=== PATIENT | male | born 1985 | race Caucasian/White ===

== ENCOUNTER 2017-10-07 16:25 | Emergency (ER) | payer SELFPAY | END 2017-10-07 17:32 | disposition home or self-care (01) | LOC: ERS 16:25 | DX: K03.81 Cracked tooth (principal); K02.9 Dental caries, unspecified; F43.10 Post-traumatic stress disorder, unspecified; F41.1 Generalized anxiety disorder; F20.9 Schizophrenia, unspecified; F17.210 Nicotine dependence, cigarettes, uncomplicated | CPT/HCPCS: 99406 ==

== ENCOUNTER 2017-10-31 11:23 | Emergency (ER) | payer SELFPAY ==
[2017-10-31] MEDS ORDERED: Ketorolac Tromethamine 30 MG/ML VIAL ONE ×2 (13:34→13:35)
== END 2017-10-31 13:50 | disposition home or self-care (01) ==
LOC: ERS 11:23
DX: K03.81 Cracked tooth (principal); F17.210 Nicotine dependence, cigarettes, uncomplicated
CPT/HCPCS: 96372; J1885

== ENCOUNTER 2017-11-15 04:56 | Emergency (ER) | payer SELFPAY ==
[2017-11-15] MEDS ORDERED: Ketorolac Tromethamine 60 MG/2 ML VIAL ONE (05:19)
[2017-11-15] MEDS ORDERED: Lidocaine 1% PF 5 ML VIAL ONE (05:19)
[2017-11-15] MEDS ORDERED: cefTRIAXone\\ROCEPHIN 250 MG VIAL ONE (05:19)
[2017-11-15] MEDS ORDERED: Azithromycin 250 MG TAB ONE (05:19)
[2017-11-15 06:47] LABS: Bilirubin Negative (Negative); Blood, Urine Negative (Negative); Clarity CLEAR (Clear); Glucose, Urine (Dipstick) Negative (Negative); Leukocyte Negative (Negative); Nitrite Negative (Negative); Protein, Urine (Dipstick) Negative (Neg-Trace); Specific Gravity, Urine 1.009 (1.002-1.036); Urobilinogen 0.2 mg/dL (0.2-1.0); pH, Urine 7.5 (5.0-9.0)
[2017-11-17 20:34] LABS: Chlamydia by PCR Not Detected (NotDetected); GC by PCR Not Detected (NotDetected)
== END 2017-11-15 06:32 | disposition left against medical advice (07) ==
LOC: ERS 04:56
DX: R10.30 Lower abdominal pain, unspecified (principal); R30.0 Dysuria; F17.210 Nicotine dependence, cigarettes, uncomplicated; F41.9 Anxiety disorder, unspecified; F43.10 Post-traumatic stress disorder, unspecified; F20.9 Schizophrenia, unspecified; Z79.899 Other long term (current) drug therapy
CPT/HCPCS: 81003; 87491; 87591; 96372; J0696; J1885; J2001

== ENCOUNTER 2017-12-19 11:57 | Emergency (ER) | payer SELFPAY ==
--- NOTE | 2017-12-19 12:34 | RAD ---
FOUR VIEWS OF THE RIGHT KNEE: DATE: 12/19/17. COMPARISON: 07/05/04. HISTORY: Chronic pain. FINDINGS: There is a new sclerotic lesion within the distal right femoral shaft measuring 2.5 cm in craniocauda l dimension, likely representing a chondroid lesion. There is a stable screw associated with the pro ximal right tibia. No significant knee joint effusion. There is patellofemoral joint space narrowin g and posterior patellar osteophyte formation. There is mild medial and lateral compartment narrowin g. No acute fracture or dislocation seen. IMPRESSION: 1. Postoperative and degenerative changes within the right knee with no displaced fracture or eviden ce of dislocation. 2. Incidental note made of new sclerotic lesion within distal right femoral metaphysis, with an appe arance most consistent with chondroid lesion. If this is felt to represent the origin of patient luan n, MRI advised. Recommend nonemergent orthopedic consultation for followup assessment of distal righ t femoral sclerotic lesion. CODE T POS: [facility]
== END 2017-12-19 13:13 | disposition home or self-care (01) ==
LOC: ERS 11:57
DX: M25.561 Pain in right knee (principal); M89.9 Disorder of bone, unspecified; F41.9 Anxiety disorder, unspecified; F20.9 Schizophrenia, unspecified; F43.10 Post-traumatic stress disorder, unspecified; F17.210 Nicotine dependence, cigarettes, uncomplicated
CPT/HCPCS: 99406

== ENCOUNTER 2018-01-02 10:30 | Emergency (ER) | payer SELFPAY, OTHER ==
--- NOTE | 2018-01-29 14:39 | EKG ---
Test Reason : Blood Pressure : / mmHG Vent. Rate : 074 BPM Atrial Rate : 074 BPM P-R Int : 146 ms QRS Dur : 098 ms QT Int : 408 ms P-R-T Axes : 050 038 008 degrees QTc Int : 452 ms Normal sinus rhythm Normal ECG Confirmed by MAMADOU NOGUEIRA ([id number]), online editor AYAKA MUNROE ([id number]) on 01/29/2018 2:38:48 PM Referred By: SYLVESTER Confirmed By:MAMADOU NOGUEIRA
== END 2018-01-02 11:52 | disposition home or self-care (01) ==
LOC: ERS 10:30
DX: R07.2 Precordial pain (principal); F41.9 Anxiety disorder, unspecified; F20.9 Schizophrenia, unspecified; F43.10 Post-traumatic stress disorder, unspecified; F31.9 Bipolar disorder, unspecified; F17.210 Nicotine dependence, cigarettes, uncomplicated; Z71.6 Tobacco abuse counseling
CPT/HCPCS: 36416; 93005; 99406

== ENCOUNTER 2018-03-03 10:47 | Emergency (ER) | payer SELFPAY, OTHER ==
--- NOTE | 2018-03-03 13:39 | RAD ---
FOUR VIEWS RIGHT KNEE: HISTORY: Injury. Pain. COMPARISON: 12/19/17. FINDINGS: Stable postoperative change and sclerosis. No joint effusion. No fracture. No malalignment. Stabl e degenerative changes. IMPRESSION: 1. No fracture. 2. Stable sclerosis involving the distal femur. Stable postoperative changes. POS: [facility]
--- NOTE | 2018-03-03 13:40 | RAD ---
THREE VIEWS OF THE RIGHT ANKLE: DATE: 03/03/18. COMPARISON: None. HISTORY: Twisted ankle, pain. FINDINGS: There is enthesophyte formation at the insertion of the Achilles tendon. The talar dome and ankle mortise are intact. There is no displaced fracture or dislocation seen. IMPRESSION: No acute osseous abnormality. POS: [facility]
== END 2018-03-03 13:59 | disposition home or self-care (01) ==
LOC: ERS 10:47
DX: M25.561 Pain in right knee (principal); M25.571 Pain in right ankle and joints of right foot; G89.29 Other chronic pain; F41.9 Anxiety disorder, unspecified; F20.9 Schizophrenia, unspecified; F43.10 Post-traumatic stress disorder, unspecified; F31.9 Bipolar disorder, unspecified; F17.210 Nicotine dependence, cigarettes, uncomplicated; Z79.899 Other long term (current) drug therapy; W01.0XXA Fall on same level from slipping, tripping and stumbling without subsequent striking against object, initial encounter
CPT/HCPCS: 99283

== ENCOUNTER 2018-03-13 18:37 | Emergency (ER) | payer OTHER, SELFPAY ==
--- NOTE | 2018-03-13 19:37 | RAD ---
TWO VIEWS CHEST: 03/13/18 HISTORY: Evaluate for foreign body. Swallowed battery 10 to 15 minutes ago. COMPARISON: None. FINDINGS: Two views chest. Normal cardiac silhouette. The lungs and pleural spaces are clear. No pneumothorax. No osseous abnormalities. No radiopaque foreign body. IMPRESSION: No radiopaque foreign body. POS: [facility]
--- NOTE | 2018-03-13 19:41 | RAD ---
ONE VIEW ABDOMEN: 03/13/18 HISTORY: Patient swallowed a battery. Evaluate for foreign body. COMPARISON: None. FINDINGS: One view abdomen: In the epigastric region, there is a radiopaque foreign body measuring 6 cm. This foreign body has a cylindrical appearance and is compatible with ingested battery. This battery is likely in the distal stomach. Bowel gas pattern is nonspecific. No pneumoperitoneum on supine projection. IMPRESSION: Ingested foreign body as above. POS: [facility]
== END 2018-03-13 20:08 | disposition home or self-care (01) ==
LOC: ERS 18:37
DX: T18.9XXA Foreign body of alimentary tract, part unspecified, initial encounter (principal); F41.9 Anxiety disorder, unspecified; F20.9 Schizophrenia, unspecified; F43.10 Post-traumatic stress disorder, unspecified; F17.210 Nicotine dependence, cigarettes, uncomplicated; Z79.899 Other long term (current) drug therapy
CPT/HCPCS: 71046; 74018

== ENCOUNTER 2018-04-06 19:06 | Inpatient (IN) | payer SELFPAY ==
[2018-04-06] MEDS ORDERED: Lorazepam 2 MG/ML VIAL ONE (21:48)
[2018-04-06] MEDS ORDERED: Ziprasidone 20 MG VIAL ONE (22:04)
[2018-04-06 22:08] LABS: ALT (SGPT) 61 U/L (8-55); AST (SGOT) 183 U/L (5-34); Alkaline Phosphatase 87 U/L (40-150); Anion Gap 19 mmol/L (10-20); BUN (Urea Nitrogen) 21 mg/dL (8.9-20.6); Bilirubin, Total 2.2 mg/dL (0.2-1.2); Calc. Creatinine Clearance 0 mL/min (70-130); Calcium 10.1 mg/dL (7.8-10.44); Carbon Dioxide 20 mmol/L (22-29); Chloride 103 mmol/L (98-107); Estimated GFR-MDRD 24; Glucose 96 mg/dL (70-105); Potassium 3.7 mmol/L (3.5-5.1); Sodium 138 mmol/L (136-145)
[2018-04-06 22:14] LABS: Band 5 % (5-11); Hemoglobin 16.1 g/dL (14.0-18.0); Lymphocytes 13 % (21-51); MDiff Complete? YES; Mean Corpuscular HGB CONC 37.6 g/dL (32.0-36.0); Mean Corpuscular Hemoglobin 32.8 pg (27.0-31.0); Mean Corpuscular Volume 87.2 fL (78.0-98.0); Mean Platelet Volume 6.4 fL (7.4-10.4); Monocytes 12 % (0-10); Myelocyte 1 % (0-0); Neutrophil 69 % (42-75); PLT Morphology Comment Appears Adequate; Platelet Count 282 thou/uL (130-400); RBC Distribution Width 11.8 % (11.5-14.5); Red Blood Cell (RBC) Count 4.91 mill/uL (4.70-6.10)
[2018-04-06 22:55] LABS: Bilirubin Small (Negative); Blood, Urine Small (Negative); Clarity CLEAR (Clear); Glucose, Urine (Dipstick) Negative (Negative); Leukocyte Trace (Negative); Nitrite Negative (Negative); Protein, Urine (Dipstick) 100 mg/dL (Neg-Trace)
[2018-04-06 22:57] LABS: Bacteria/HPF None Seen HPF (None Seen); Squamous Epithelial 0-3 HPF (0-3)
[2018-04-06 23:02] LABS: Pathc Cast-AUWi Flag 7.12 (0-2.49)
[2018-04-06 23:05] LABS: Amphetamine Detected (NotDetected); Barbiturates Screen Not Detected (NotDetected); Benzodiazepine Screen Detected (NotDetected); Cocaine Metabolite Screen Not Detected (NotDetected); Medtox Control Line Valid? VALID (VALID); Medtox Reader # READER 1; Methadone Not Detected (NotDetected); Methamphetamine Detected (NotDetected); Opiate Screen Not Detected (NotDetected); Oxycodone Screen Not Detected (NotDetected); Phencyclidine (PCP) Not Detected (NotDetected); THC/Cannabinoid Screen Not Detected (NotDetected); Tricyclic Screen Not Detected (NotDetected)
[2018-04-06 23:10] LABS: Crystals/HPF 1+ CA OXALATE HPF (Negative)
--- NOTE | 2018-04-06 23:46 | RAD ---
ONE VIEW CHEST: HISTORY: Anxiety. COMPARISON: 03/13/2018 FINDINGS: Normal cardiac silhouette. Lungs and pleural spaces are clear. Lung volumes are slightly diminished due to poor inspiratory effort. No pneumothorax or osseous abnormalities. IMPRESSION: No acute cardiopulmonary process. POS: [facility]
[2018-04-07] MEDS ORDERED: Acetaminophen 325 MG TAB PO PRN ×2 (00:56→04:00)
[2018-04-07] MEDS ORDERED: Ondansetron HCl/PF 4 MG/2 ML Vial IVP PRN (00:56)
[2018-04-07] MEDS ORDERED: Sodium Chloride 0.9% 1,000 ML IV SCH ×2 (00:56→08:30)
[2018-04-07] MEDS ORDERED: Ondansetron ODT 4 MG TAB SL PRN (00:56)
[2018-04-07 02:08] VITALS: BMI 31.0
[2018-04-07] MEDS ORDERED: HYDROcodone/Acetaminophen 5/325 mg Tablet PO PRN ×2 (04:00)
[2018-04-07] MEDS ORDERED: Sodium Bicarbonate 150 MEQ in Dextrose 5% in Water 1,000 ML IV SCH (04:30)
[2018-04-07 04:40] LABS: #Eosinphils 0.1 thou/uL (0.0-0.7); #Monocytes 1.6 thou/uL (0.11-0.59); #Neutrophils 7.2 thou/uL (1.40-6.50); %Basophils 0.4 % (0.0-1.0); %Eosinophils 0.4 % (0.0-10.0); %Lymphocytes 25.5 % (21.0-51.0); %Monocytes 13.3 % (0.0-10.0); %Neutrophils 60.4 % (42.0-75.0); Mean Corpuscular HGB CONC 35.8 g/dL (32.0-36.0); Mean Corpuscular Hemoglobin 31.6 pg (27.0-31.0); Mean Corpuscular Volume 88.4 fL (78.0-98.0); Mean Platelet Volume 6.2 fL (7.4-10.4); Platelet Count 195 thou/uL (130-400); RBC Distribution Width 11.8 % (11.5-14.5); Red Blood Cell (RBC) Count 4.43 mill/uL (4.70-6.10); White Blood Cell (WBC) Count 11.9 thou/uL (4.8-10.8)
[2018-04-07 04:56] LABS: Anion Gap 15 mmol/L (10-20); BUN (Urea Nitrogen) 20 mg/dL (8.9-20.6); Calc. Creatinine Clearance 78 mL/min (70-130); Calcium 8.9 mg/dL (7.8-10.44); Carbon Dioxide 19 mmol/L (22-29); Chloride 107 mmol/L (98-107); Estimated GFR-MDRD 39; Glucose 77 mg/dL (70-105); Magnesium 1.6 mg/dL (1.6-2.6); Potassium 3.6 mmol/L (3.5-5.1); Sodium 137 mmol/L (136-145)
[2018-04-07 05:25] LABS: CK (CPK) 20494 U/L (30-200)
--- NOTE | 2018-04-07 07:44 | HP ---
DATE OF ADMISSION: 04/07/2018 PRIMARY CARE PHYSICIAN: None. The patient is a city call. TIME OF SERVICE: 314. CHIEF COMPLAINT: Anxiety. HISTORY OF PRESENT ILLNESS: Mr. Doe is a 32-year-old male with a history of known anxiety disorder . He also has schizophrenia and bipolar disorder. The patient states he has felt "manic" lately and has had some headache and neck pain. He has been taking his medicines as prescribed, but has not re ally helped. He has recently been admitted to [facility] about a month ag o. In the emergency department, he was noted to be anxious. Urine drug screen was positive for amphetam ine/methamphetamines and benzodiazepines. He was complaining of some vague chest discomfort, but had negative cardiac biomarkers. The labs also did reveal his CK to be 23,778. We were subsequently ca lled for admission. The patient denies any chest pain or shortness of breath, no nausea, vomiting, diarrhea, constipation . PAST MEDICAL HISTORY: 1. Anxiety. 2. Post-traumatic stress disorder. 3. Panic attacks. 4. Schizophrenia. 5. Bipolar disorder. PAST SURGICAL HISTORY: 1. Hernia repair x2. 2. Right knee surgery x3. 3. Left knee surgery x1. 4. Pyloric stenosis myotomy as a child. HOME MEDICATIONS: 1. Buspirone 30 mg p.o. t.i.d. 2. Zoloft 200 mg daily. 3. Benztropine 1 mg p.o. b.i.d. ALLERGIES: PENICILLIN causes a rash, TRAMADOL causes him to be listless. FAMILY HISTORY: Negative for clotting or bleeding disorder. No immune dysfunction or premature pepper nary disease. SOCIAL HISTORY: Negative for habits x3. REVIEW OF SYSTEMS: All systems are reviewed and negative except listed as per HPI. PHYSICAL EXAMINATION: VITAL SIGNS: Temperature 98.6, pulse 88, blood pressure 132/73, respiratory rate 12, satting 100% on room air. GENERAL: He is awake, is alert, is oriented x3. He is an obese white male, appears to be in no acut e distress. HEENT: Normocephalic, atraumatic. Pupils equal, round, react to light bilaterally. Mucous membrane s moist. No visible lesion, no thrush. NECK: Supple. No lymphadenopathy, JVD, or thyromegaly. Normal carotid upstrokes. I do not appreci ate bruits. LUNGS: Clear. He has no wheezes, no rales, no rhonchi. No prolonged expiratory phase. CARDIOVASCULAR: Normal S1 and S2. He has normal cardiac and regular. No audible murmurs. ABDOMEN: Soft, is nontender, nondistended, no mass or organomegaly. Normoactive bowel sounds that a re quiet. EXTREMITIES: No cyanosis or clubbing. Trace pedal edema. SKIN: Otherwise, warm, moist, and well perfused without a rash or lesion. MUSCULOSKELETAL: Normal to inspection. Large joints appear normal. There is no evidence of inflammation or palpable effusio n with decent range of motion. NEUROLOGIC: Cranial nerves II-XII are grossly intact. He has no focal deficits. He does have fligh t of ideas. He has no focal deficits. Normal speech pattern with 5/5 strength. LABORATORY DATA: Sodium 138, potassium 3.7, chloride 103, bicarb 20, BUN 21, creatinine 3.03. Liver function showed an AST elevated at 183 and ALT of 61. Total bilirubin is 2.2. The rest of his liver functions are normal. His CBC showed a white count of 19,000, hemoglobin is 16.1, hematocrit of 42.8, platelet count is 282,000. He has got a 69% granulocytes with 5% bands and 32% lymphocytes. His chest x-ray is negative. ASSESSMENT AND PLAN: 1. Rhabdomyolysis, patient's CK is 23,378. We will continue him on IV fluids. Recheck his creatini ne and CK in the morning. 2. Methamphetamine abuse: The patient is positive for methamphetamines which he does admit to using . It should clear his system fairly quickly as his creatinine improves. 3. Anxiety disorder. 4. Post-traumatic stress disorder. 5. Panic attack. 6. Schizophrenia. 7. Bipolar disorder with what sounds like a manic phase. I will continue his buspirone, Zoloft, and benztropine. Continue to aggressively hydrate and watch his vital signs. 8. Acute kidney injury. Creatinine is 3.03 with an unknown baseline. Recheck in the morning. I barrios spect he is much more normal on a regular basis.
[2018-04-07] MEDS ORDERED: busPIRone HCl 10 MG TAB PO SCH (09:00)
[2018-04-07] MEDS ORDERED: Benztropine 1 MG TAB PO SCH (09:00)
[2018-04-07] MEDS ORDERED: Famotidine 20 MG TAB PO SCH (09:00)
[2018-04-07] MEDS ORDERED: Lorazepam 1 MG TAB PO PRN ×2 (10:36→14:22)
[2018-04-07 11:29] VITALS: BP 117/83; TEMP 98.4
[2018-04-07] MEDS ORDERED: Lorazepam 2 MG/ML VIAL SLOW IVP PRN (14:19)
--- NOTE | 2018-04-07 14:26 | PDOC.PN ---
- Subjective Encounter Start Date: 04/07/18 Encounter Start Time: 14:00 Subjective: f/u for seizure, MOHIT, rhabdomyolysis on current IVF's. Remains agitated -: and received Geodon and Ativan. + meth on UDS. - Objective Resuscitation Status: Resuscitation Status FULL:Full Resuscitation MAR Reviewed: Yes Vital Signs & Weight: Vital Signs (12 hours) Temp Pulse Resp BP BP Pulse Ox 04/07/18 11:10 98.4 F 103 H 24 H 117/83 96 04/07/18 07:45 97.9 F 93 24 H 04/07/18 07:18 97.9 F 93 24 H 125/79 96 04/07/18 03:18 98.7 F 89 14 129/79 99 Weight Weight 229 lb I&O: 04/06/18 04/07/18 04/08/18 06:59 06:59 06:59 Intake Total 342 Balance 342 Result Diagrams: 04/07/18 04:21 04/07/18 04:21 Additional Labs: Laboratory Tests 04/06/18 04/06/18 04/06/18 21:39 21:39 21:39 WBC 19.0 H Creatinine 3.03 H Total Bilirubin 2.2 H AST 183 H ALT 61 H Creatine Kinase TSH 3rd Generation 3.6656 Ur Amphetamines Screen U Methamphetamines Scrn U Benzodiazepines Scrn 04/06/18 04/06/18 04/07/18 21:39 22:47 04:21 WBC Creatinine Total Bilirubin AST ALT Creatine Kinase 32528 H 46190 H TSH 3rd Generation Ur Amphetamines Screen Detected H U Methamphetamines Scrn Detected H U Benzodiazepines Scrn Detected H Radiology Reviewed by me: Yes (PCXR - no acute process) EKG Reviewed by me: Yes (Tele - SR) Phys Exam - Physical Examination anxious, alert, agitated HEENT: PERRLA, sclera anicteric, oral pharynx no lesions Neck: no nodes, no JVD, supple, full ROM tachypnea Respiratory: no wheezing, no rales, no rhonchi, clear to auscultation bilateral S1, S2 Cardiovascular: RRR, no significant murmur, no rub, gallop Gastrointestinal: soft, non-tender, no distention, positive bowel sounds Musculoskeletal: no edema, pulses present moves extremities randomly Neurological: non-focal, normal sensation, moves all 4 limbs Psychiatric: A&O x 3 Skin: no rash, normal turgor, cap refill <2 seconds Dx/Plan (1) Seizure Code(s): R56.9 - UNSPECIFIED CONVULSIONS Status: Acute Comment: Suspected given hx and elevated CK levels, Ativan scheduled, suspect given polysubstance use and ? withdrawal type seizure (2) Acute renal failure due to rhabdomyolysis Code(s): N17.9 - ACUTE KIDNEY FAILURE, UNSPECIFIED; M62.82 - RHABDOMYOLYSIS Status: Acute Comment: Continue IVF's and avoid nephrotoxic meds and limit contrast exposure, serial CPK monitoring (3) Polysubstance abuse Code(s): F19.10 - OTHER PSYCHOACTIVE SUBSTANCE ABUSE, UNCOMPLICATED Status: Acute Comment: + methamphetamines, MR consult (4) Transaminitis Code(s): R74.0 - NONSPEC ELEV OF LEVELS OF TRANSAMNS & LACTIC ACID DEHYDRGNSE Status: Acute (5) Bipolar 1 disorder Code(s): F31.9 - BIPOLAR DISORDER, UNSPECIFIED Status: Chronic Comment: Resume home regimen, MHMR consult - 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
[2018-04-07] MEDS ORDERED: Ziprasidone 60 MG CAP PO SCH (17:00)
--- NOTE | 2018-04-08 05:31 | DIS ---
DATE OF ADMISSION: 04/07/2018 DATE OF DISCHARGE: 04/07/2018 DISCHARGE DIAGNOSES: 1. Seizure disorder, multifactorial. 2. Acute renal failure secondary to rhabdomyolysis. 3. Polysubstance abuse including methamphetamines. 4. Bipolar disorder with psychotic features. 5. Transaminitis. 6. Leaving the hospital against medical advice. CONSULTATIONS: None. PERTINENT LABORATORY DATA AND X-RAY FINDINGS: Creatinine ranged between 2.02 to 3.03, AST 183, ALT 6 1, total bilirubin 2.2, magnesium 1.6, total CK ranged between 20,494 to 23,373. TSH 3.67. CBC show ed a white blood cell count ranging between 11,900 to 19,000. Urine drug screen dated on 04/06/2018, positive for amphetamines, methamphetamines, and benzodiazepines. Portable chest x-ray dated on 10/2017 showed no acute cardiopulmonary process. HOSPITAL COURSE: Patient was initially admitted after presenting with increased anxiety and psychoti c features in the context of known bipolar disorder and psychosis. Patient was initially managed wit h normal saline, Ativan, and Geodon in the emergency room. Patient continued to escalate mood, anxie ty as well as psychotic tendencies during the hospital course. Patient received additional Ativan wi thout improvement and psychosis. Patient became unmanageable and decided to leave the hospital again st medical advice, so security was notified; however, patient left without being apprehended. Patien t continues with psychotic features and current recommendations per primary service or for family to assist patient to [facility] services and supervised medical care through inpatient psychiatric environment . The patient did leave against medical advice on 04/07/2018.
[2018-04-08] MEDS ORDERED: Venlafaxine HCl XR 75 MG CAP PO SCH (09:00)
== END 2018-04-07 16:45 | disposition left against medical advice (07) | DRG 683 ==
LOC: ERS 19:06 → 2SW 04-07 00:39 → OBSVTOIN 04-07 00:39 → 2NO 04-07 11:28
PROVIDERS: ADMIT Internal Medicine Infectious Disease; ATTEND Internal Medicine Infectious Disease
DX: N17.9 Acute kidney failure, unspecified (principal); F31.2 Bipolar disorder, current episode manic severe with psychotic features; M62.82 Rhabdomyolysis; R56.9 Unspecified convulsions; F20.9 Schizophrenia, unspecified; F43.10 Post-traumatic stress disorder, unspecified; F41.0 Panic disorder [episodic paroxysmal anxiety]; F15.10 Other stimulant abuse, uncomplicated; Z88.0 Allergy status to penicillin; Z88.8 Allergy status to other drugs, medicaments and biological substances; Z79.899 Other long term (current) drug therapy
CPT/HCPCS: 36415; 71045; 80048; 80053; 80306; 81003; 81015; 82550; 83735; 84443; 85025; 93005; J2060; J3486; J7070

== ENCOUNTER 2018-05-06 17:00 | Emergency (ER) | payer SELFPAY ==
--- NOTE | 2018-05-06 17:40 | RAD ---
LEFT KNEE 4 VIEWS: Date: 05/06/18 HISTORY: 32-year-old male with history of left knee pain following dislocation when walking. FINDINGS: No evidence for acute fracture or dislocation. No abnormal joint effusion. IMPRESSION: Unremarkable left knee. No acute fracture or dislocation. POS: [facility]
== END 2018-05-06 18:03 | disposition home or self-care (01) ==
LOC: ERS 17:00
DX: S83.002A Unspecified subluxation of left patella, initial encounter (principal); F41.9 Anxiety disorder, unspecified; F20.9 Schizophrenia, unspecified; F43.10 Post-traumatic stress disorder, unspecified; F17.210 Nicotine dependence, cigarettes, uncomplicated; X50.1XXA Overexertion from prolonged static or awkward postures, initial encounter

== ENCOUNTER 2018-05-20 22:40 | Emergency (ER) | payer SELFPAY ==
[2018-05-20 23:45] LABS: #Basophils 0.1 thou/uL (0.0-0.2); #Eosinphils 0.1 thou/uL (0.0-0.7); #Lymphocytes 2.6 thou/uL (1.20-3.40); #Monocytes 0.7 thou/uL (0.11-0.59); #Neutrophils 3.6 thou/uL (1.40-6.50); %Basophils 1.3 % (0.0-1.0); %Monocytes 9.7 % (0.0-10.0); %Neutrophils 50.1 % (42.0-75.0); Hemoglobin 14.5 g/dL (14.0-18.0); Mean Corpuscular HGB CONC 35.1 g/dL (32.0-36.0); Mean Corpuscular Volume 91.2 fL (78.0-98.0); Mean Platelet Volume 6.5 fL (7.4-10.4); Platelet Count 209 thou/uL (130-400); RBC Distribution Width 11.9 % (11.5-14.5); Red Blood Cell (RBC) Count 4.53 mill/uL (4.70-6.10); White Blood Cell (WBC) Count 7.1 thou/uL (4.8-10.8)
[2018-05-21 00:05] LABS: ALT (SGPT) 28 U/L (8-55); AST (SGOT) 19 U/L (5-34); Acetaminophen Less than 6.0 mcg/mL (10.0-30.0); Albumin 4.4 g/dL (3.5-5.0); Alcohol Less than 10 mg/dL (Less than 10); Alkaline Phosphatase 103 U/L (40-150); Anion Gap 13 mmol/L (10-20); BUN (Urea Nitrogen) 9 mg/dL (8.9-20.6); Bilirubin, Total 0.4 mg/dL (0.2-1.2); Calc. Creatinine Clearance 0 mL/min (70-130); Calcium 9.6 mg/dL (7.8-10.44); Carbon Dioxide 24 mmol/L (22-29); Chloride 106 mmol/L (98-107); Estimated GFR-MDRD 64; Globulin 2.8 g/dL (2.4-3.5); Glucose 92 mg/dL (70-105); Potassium 3.9 mmol/L (3.5-5.1); Protein, Total 7.2 g/dL (6.0-8.3); Salicylate Less than 8.0 mg/dL (15.0-30.0); Sodium 139 mmol/L (136-145)
[2018-05-21 01:35] LABS: Cocaine Metabolite Screen Not Detected (NotDetected); Medtox Reader # READER 1; Phencyclidine (PCP) Not Detected (NotDetected); THC/Cannabinoid Screen Not Detected (NotDetected)
[2018-05-21 01:36] LABS: Amphetamine Not Detected (NotDetected); Barbiturates Screen Not Detected (NotDetected); Benzodiazepine Screen Detected (NotDetected); Medtox Control Line Valid? VALID (VALID); Methadone Not Detected (NotDetected); Methamphetamine Not Detected (NotDetected); Opiate Screen Not Detected (NotDetected); Oxycodone Screen Not Detected (NotDetected); Tricyclic Screen Not Detected (NotDetected)
[2018-05-21] MEDS ORDERED: Benztropine 1 MG TAB PO SCH (09:00)
[2018-05-21] MEDS ORDERED: Gabapentin 300 MG CAP PO SCH (09:00)
[2018-05-21] MEDS ORDERED: OXcarbazepine 150 MG TAB PO SCH (09:00)
[2018-05-21] MEDS ORDERED: busPIRone HCl 10 MG TAB PO SCH (09:00)
[2018-05-21] MEDS ORDERED: Prazosin HCl 1 MG CAP PO SCH (21:00)
== END 2018-05-21 12:35 | disposition home or self-care (01) ==
LOC: ERS 22:40 → EEVIPCON 22:40 → ERS 05-21 12:35
DX: F29 Unspecified psychosis not due to a substance or known physiological condition (principal); F41.9 Anxiety disorder, unspecified; F20.9 Schizophrenia, unspecified; F43.10 Post-traumatic stress disorder, unspecified; Z79.899 Other long term (current) drug therapy
CPT/HCPCS: 36415; 80053; 80306; 80307; 85025; 99284

== ENCOUNTER 2018-06-08 18:25 | Emergency (ER) | payer SELFPAY ==
[2018-06-08 19:39] LABS: #Eosinphils 0.1 thou/uL (0.0-0.7); #Lymphocytes 2.3 thou/uL (1.20-3.40); #Monocytes 0.5 thou/uL (0.11-0.59); %Basophils 0.6 % (0.0-1.0); %Eosinophils 1.3 % (0.0-10.0); %Lymphocytes 33.1 % (21.0-51.0); %Monocytes 7.7 % (0.0-10.0); %Neutrophils 57.3 % (42.0-75.0); Hemoglobin 14.6 g/dL (14.0-18.0); Mean Corpuscular HGB CONC 36.1 g/dL (32.0-36.0); Mean Corpuscular Hemoglobin 32.5 pg (27.0-31.0); Mean Corpuscular Volume 89.8 fL (78.0-98.0); Mean Platelet Volume 6.9 fL (7.4-10.4); Platelet Count 202 thou/uL (130-400); RBC Distribution Width 11.8 % (11.5-14.5); White Blood Cell (WBC) Count 7.1 thou/uL (4.8-10.8)
[2018-06-08 19:53] LABS: ALT (SGPT) 25 U/L (8-55); AST (SGOT) 22 U/L (5-34); Acetaminophen Less than 6.0 mcg/mL (10.0-30.0); Albumin 4.5 g/dL (3.5-5.0); Alcohol Less than 10 mg/dL (Less than 10); Alkaline Phosphatase 99 U/L (40-150); Anion Gap 12 mmol/L (10-20); BUN (Urea Nitrogen) 11 mg/dL (8.9-20.6); Bilirubin, Total 0.3 mg/dL (0.2-1.2); Calc. Creatinine Clearance 0 mL/min (70-130); Calcium 9.6 mg/dL (7.8-10.44); Carbon Dioxide 22 mmol/L (22-29); Chloride 109 mmol/L (98-107); Estimated GFR-MDRD 76; Globulin 3.2 g/dL (2.4-3.5); Glucose 119 mg/dL (70-105); Potassium 4.2 mmol/L (3.5-5.1); Protein, Total 7.7 g/dL (6.0-8.3); Salicylate Less than 8.0 mg/dL (15.0-30.0); Sodium 139 mmol/L (136-145)
== END 2018-06-08 20:15 | disposition home or self-care (01) ==
LOC: ERS 18:25
DX: F43.10 Post-traumatic stress disorder, unspecified (principal); F25.9 Schizoaffective disorder, unspecified; F41.9 Anxiety disorder, unspecified; F17.200 Nicotine dependence, unspecified, uncomplicated; Z79.899 Other long term (current) drug therapy
CPT/HCPCS: 36415; 80053; 80307; 84443; 85025

== ENCOUNTER 2018-06-11 10:44 | Emergency (ER) | payer SELFPAY | END 2018-06-11 14:05 | disposition left against medical advice (07) | LOC: ERS 10:44 | DX: Z53.21 Procedure and treatment not carried out due to patient leaving prior to being seen by health care provider (principal) ==

== ENCOUNTER 2018-06-12 19:09 | Inpatient (IN) | payer SELFPAY ==
[2018-06-12 19:30] LABS: #Basophils 0.1 thou/uL (0.0-0.2); #Eosinphils 0.1 thou/uL (0.0-0.7); #Monocytes 0.5 thou/uL (0.11-0.59); #Neutrophils 2.8 thou/uL (1.40-6.50); %Basophils 0.9 % (0.0-1.0); %Eosinophils 2.4 % (0.0-10.0); %Lymphocytes 36.2 % (21.0-51.0); %Monocytes 9.3 % (0.0-10.0); %Neutrophils 51.1 % (42.0-75.0); Hemoglobin 13.9 g/dL (14.0-18.0); Mean Corpuscular HGB CONC 35.6 g/dL (32.0-36.0); Mean Corpuscular Hemoglobin 32.5 pg (27.0-31.0); Mean Corpuscular Volume 91.3 fL (78.0-98.0); Mean Platelet Volume 6.8 fL (7.4-10.4); Platelet Count 205 thou/uL (130-400); Red Blood Cell (RBC) Count 4.28 mill/uL (4.70-6.10); White Blood Cell (WBC) Count 5.5 thou/uL (4.8-10.8)
[2018-06-12] MEDS ORDERED: Naloxone HCl 2 mg/2 ml Syringe ONE (19:46)
[2018-06-12 19:49] LABS: Bilirubin Negative (Negative); Blood, Urine Negative (Negative); Clarity CLEAR (Clear); Glucose, Urine (Dipstick) Negative (Negative); Leukocyte Negative (Negative); Nitrite Negative (Negative); Protein, Urine (Dipstick) Negative (Neg-Trace); Specific Gravity, Urine 1.013 (1.002-1.036); Urobilinogen 0.2 mg/dL (0.2-1.0); pH, Urine 5.5 (5.0-9.0)
[2018-06-12 19:56] LABS: ALT (SGPT) 28 U/L (8-55); AST (SGOT) 28 U/L (5-34); Acetaminophen Less than 6.0 mcg/mL (10.0-30.0); Albumin 4.2 g/dL (3.5-5.0); Alcohol Less than 10 mg/dL (Less than 10); Alkaline Phosphatase 77 U/L (40-150); Anion Gap 11 mmol/L (10-20); BUN (Urea Nitrogen) 10 mg/dL (8.9-20.6); Bilirubin, Total 0.6 mg/dL (0.2-1.2); CK (CPK) 326 U/L (30-200); Calc. Creatinine Clearance 0 mL/min (70-130); Calcium 9.2 mg/dL (7.8-10.44); Carbon Dioxide 28 mmol/L (22-29); Chloride 102 mmol/L (98-107); Estimated GFR-MDRD 71; Globulin 2.7 g/dL (2.4-3.5); Glucose 87 mg/dL (70-105); Potassium 3.8 mmol/L (3.5-5.1); Protein, Total 6.9 g/dL (6.0-8.3); Salicylate Less than 8.0 mg/dL (15.0-30.0); Sodium 137 mmol/L (136-145)
[2018-06-12 20:01] LABS: Benzodiazepine Screen Detected (NotDetected); Medtox Reader # READER 4; Methamphetamine Detected (NotDetected); Oxycodone Screen Detected (NotDetected); Tricyclic Screen Detected (NotDetected)
[2018-06-12 20:02] LABS: Amphetamine Not Detected (NotDetected); Barbiturates Screen Not Detected (NotDetected); Cocaine Metabolite Screen Not Detected (NotDetected); Medtox Control Line Valid? VALID (VALID); Methadone Not Detected (NotDetected); Opiate Screen Not Detected (NotDetected); Phencyclidine (PCP) Not Detected (NotDetected); THC/Cannabinoid Screen Not Detected (NotDetected)
[2018-06-12] MEDS ORDERED: Ondansetron HCl/PF 4 MG/2 ML Vial IVP PRN (23:22)
[2018-06-12] MEDS ORDERED: Sodium Chloride 0.9% 1,000 ML IV SCH (23:22)
[2018-06-12] MEDS ORDERED: Acetaminophen 325 MG TAB PO PRN (23:22)
[2018-06-12] MEDS ORDERED: Ondansetron ODT 4 MG TAB SL PRN (23:22)
[2018-06-13] MEDS ORDERED: Lorazepam 2 MG/ML VIAL SLOW IVP PRN (01:09)
[2018-06-13 02:02] VITALS: BMI 33.2
[2018-06-13] MEDS: Sodium Chloride 0.9% 1,000 ML IV SCH ×2 (02:02→07:37)
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
[2018-06-13 11:39] VITALS: BP 119/90; TEMP 98.2
--- NOTE | 2018-06-13 17:11 | DIS ---
DATE OF ADMISSION: 06/12/2018 DATE OF DISCHARGE: 06/13/2018 PRIMARY CARE PHYSICIAN: Jimmie Cruz M.D. PRIMARY PSYCHIATRIST: Dr. Hernandez DISCHARGE DIAGNOSES: 1. Accidental overdose. 2. Polysubstance abuse. 3. Post-traumatic stress disorder. 4. Toxic encephalopathy secondary to combined medications as below. 5. Generalized anxiety disorder. 6. Schizophrenia. 7. Bipolar. CONSULTATIONS: None. PROCEDURES: None. HISTORY AND PHYSICAL: Mr. Doe is a 32-year-old male with the above history who wanted to get "high " medications. He was started on hydrocodone, Xanax (which he says takes 26 mg to get him high ) and methamphetamine. He sat down and felt like he was sleepy and passed out. He was found to be u nresponsive and EMS was activated. He was brought to the ER for evaluation. HOSPITAL COURSE: Patient was seen and examined by Dr. Rice in the emergency department and placed in IMCU for monitoring. I saw him earlier this morning and he was extremely somnolent, however, leeanne rtly thereafter he promptly woke up and was back to baseline mental status. He seemed little agitate d, vehemently denied being suicidal or homicidal, and a Gu catheter was ordered to be removed and diet was given. He is able to void and was able to eat without difficulty and was stable for dischar . PHYSICAL EXAMINATION: The patient was seen and examined on the day of discharge. Discharge planning and disposition were discussed with the patient, his cousin, and his . DISCHARGE MEDICATIONS: 1. Cogentin 1 mg p.o. t.i.d. 2. Buspirone 30 mg p.o. t.i.d. 3. Gabapentin 300 mg p.o. b.i.d. 4. Trileptal 150 mg p.o. b.i.d. 5. Prazosin 1 mg p.o. at bedtime. 6. Sertraline 200 mg p.o. daily. 7. Venlafaxine 75 mg daily. 8. Geodon 80 mg p.o. b.i.d. FOLLOWUP APPOINTMENTS: 1. Primary care physician within a week. 2. Psychiatrist next available. DISCHARGE ACTIVITY: As tolerated. DISCHARGE DIET: Restricted. DISCHARGE CONDITION: Stable. DISPOSITION: Being discharged home via private vehicle with family.
--- NOTE | 2018-06-14 22:25 | EKG ---
Test Reason : OD Blood Pressure : / mmHG Vent. Rate : 072 BPM Atrial Rate : 072 BPM P-R Int : 152 ms QRS Dur : 098 ms QT Int : 432 ms P-R-T Axes : 029 001 -01 degrees QTc Int : 473 ms Normal sinus rhythm Moderate voltage criteria for LVH, may be normal variant Borderline ECG Confirmed by ANN SIERRA DO ([id number]), slot editor AYAKA MUNROE ([id number]) on 06/14/2018 10:25:12 PM Referred By: Confirmed By:ANN SIERRA DO
== END 2018-06-13 15:56 | disposition home or self-care (01) | DRG 917 ==
LOC: EEVIPCON 19:09 → ERS 19:09 → IMCU/EMU 22:42
PROVIDERS: ADMIT Internal Medicine; ATTEND Internal Medicine
DX: T50.991A Poisoning by other drugs, medicaments and biological substances, accidental (unintentional), initial encounter (principal); G92 Toxic encephalopathy; F15.20 Other stimulant dependence, uncomplicated; F41.1 Generalized anxiety disorder; F20.9 Schizophrenia, unspecified; F43.10 Post-traumatic stress disorder, unspecified; Z96.659 Presence of unspecified artificial knee joint; F31.9 Bipolar disorder, unspecified; F12.90 Cannabis use, unspecified, uncomplicated
CPT/HCPCS: 51702; 80053; 80306; 80307; 81003; 82550; 84443; 85025; 93005; 96361; 96374; J2310

== ENCOUNTER 2019-06-29 02:30 | Emergency (ER) | payer SELFPAY ==
[2019-06-29] MEDS ORDERED: Morphine 4 MG/ML VIAL ONE (03:51)
--- NOTE | 2019-06-29 08:22 | RAD ---
LEFT KNEE 4 VIEWS: HISTORY: Recurrent patellar dislocation. COMPARISON: 05/06/2018. FINDINGS: There does appear to be some lateral patellar subluxation as seen on the AP view. Evidence for knee joint suprapatellar effusion. No overt acute fracture. IMPRESSION: Evidence for some lateral patellar subluxation with suprapatellar joint effusion. No overt acute fra cture. Followup MRI would be of benefit for further assessment. POS: [facility]
== END 2019-06-29 04:26 | disposition home or self-care (01) ==
LOC: ERS 02:30
DX: S83.015A Lateral dislocation of left patella, initial encounter (principal); Z71.6 Tobacco abuse counseling; E78.5 Hyperlipidemia, unspecified; F20.9 Schizophrenia, unspecified; F43.10 Post-traumatic stress disorder, unspecified; F31.9 Bipolar disorder, unspecified; F17.210 Nicotine dependence, cigarettes, uncomplicated; Z79.899 Other long term (current) drug therapy; W10.9XXA Fall (on) (from) unspecified stairs and steps, initial encounter
CPT/HCPCS: 96372; 99406; J2270

== ENCOUNTER 2020-01-29 13:05 | Outpatient (CLI) | payer MEDICARE, MEDICAID, OTHER | END 2020-01-29 13:06 | disposition home or self-care (01) | LOC: LABBT 13:05 | PROVIDERS: ATTEND Student in an Organized Health Care Education/Training Program | DX: Z11.59 Encounter for screening for other viral diseases (principal); R22.0 Localized swelling, mass and lump, head; L72.0 Epidermal cyst | CPT/HCPCS: 80053; 80061; 83036; 84439; 84443; U0002; 87635 ==

== ENCOUNTER 2020-02-02 05:53 | Day surgery (SDC) | payer MEDICARE, MEDICAID ==
[2020-01-29 13:14] VITALS: BMI 35.0
[2020-02-02] MEDS ORDERED: Lidocaine 1% w/Epinephrine 1:100K 20 ML VIAL ONE (06:24)
[2020-02-02] MEDS ORDERED: Fentanyl 100 MCG/2 ML VIAL ONE (06:55)
[2020-02-02] MEDS ORDERED: Midazolam HCl 2 mg/2 ml Vial ONE (06:55)
[2020-02-02] MEDS ORDERED: Bacitracin Zinc Ointment 30 gm TUBE ONE (08:10)
[2020-02-02] MEDS ORDERED: PROPOFOL 200 MG/20 ML VIAL ONE (09:55)
[2020-02-02] MEDS ORDERED: Rocuronium Bromide 10 MG/ML (10ML VIAL) ONE (09:55)
[2020-02-02] MEDS ORDERED: Lidocaine 1% PF 5 ML VIAL ONE (09:55)
[2020-02-02] MEDS ORDERED: Succinylcholine Chloride 20 MG/ML 10 ml SYRINGE FS ONE (09:55)
--- NOTE | 2020-02-02 14:07 | OP ---
DATE OF PROCEDURE: 02/02/2020 PREOPERATIVE DIAGNOSIS: Right facial mass. POSTOPERATIVE DIAGNOSIS: Right facial mass. PROCEDURE PERFORMED: Excision of right facial mass 3.5 cm in diameter. PERMIT: Procedures, benefits, and risks including those of bleeding, infection, injury, anesthesia, allergic reaction, damage to nerves, muscles, and blood vessels, and change in facial function as well as scarring was discussed and reviewed with the patient and family, who expressed understanding of the information. The consent form was signed and witnessed, and a paper copy of the consent form was available for review in the paper chart. INDICATIONS: This is a 34-year-old male patient, who presented to clinic previously with exam findings of a right facial mass, that was superficial with a skin connection with an almost soft proteinaceous center, that has been increasing in size and occasionally had some swelling and pain, and as it was bothering the patient and had the potential for infection as well as for a neoplastic process , the patient elected for surgical excision in the operating room and is now brought to the operating room for treatment. ASSISTANTS: None. FINDINGS: Right facial mass 3.5 cm in diameter with superficial skin tethering. DESCRIPTION OF OPERATION: The patient was brought to the operating room and laid supine on the operating room table. General endotracheal anesthesia was administered. 1% lidocaine to 1:100,000 epinephrine was injected around the right facial mass, and a small elliptical incision was mapped out and planned over the soft tissue paper like thin area over the mass where it seems the mass has been tethering to the skin. At this point, the mass was blended in the mental crease and a small elliptical incision was made around the mass. After the incision was made, toothed Addisons were used to grasp the skin tethering and tenotomy scissors were used to continue to do both blunt and sharp dissection around the mass, staying close to the mass. There was a clear plane except for the deep margin, that had some adherent scar tissue which subfacial and extended into the underlying musculature, which was carefully divided, taking care to preserve the musculature and to preserve any other structures in that area. No cautery was used in the deep or surrounding areas in an attempt to avoid damage to the marginal branch of the facial nerve, which would be innervating deep to the musculature. At this point, the mass was removed and the mass was marked with a silk stitch, a short mohini superiorly and a long mohini laterally and sent for pathologic evaluation. Next, the defect was irrigated with iodine and saline solution and then irrigated again with saline solution, and there was seen to be only a small amount of oozing. Again, electrocautery was avoided at this point in order to avoid any nerve damage to the wound bed. At this point, 5-0 Vicryl suture was used to make deep buried sutures to approximate the wound edge and then a layered closure with 5-0 Prolene was used in a continuous running fashion to close the skin incision. After the skin incision was closed, the iodine was cleaned from the face and bacitracin was applied to the incision site, and the patient was turned over to Anesthesia for emergence. There were no complications. Blood loss was roughly 2 mL. There were no implants or drains. Specimens were sent for pathologic evaluation. Job ID: [id number] [facility]
--- NOTE | 2020-02-04 06:01 | PQF ---
[facility] POST DISCHARGE CLINICAL DOCUMENTATION IMPROVEMENT CLARIFICATION FORM l Todays Date: 02/04/20 l Patients Name CALVIN LOONEY l l Admit Date 02/02/20 l Disch Date 02/02/20 Outpatient Coordinator Name Ward Morton Email: [email or web address]: [phone] To be completed by Outpatient Coordinator: Present Clinical Indicators - Signs / Symptoms Results and Location in Medical Record [ ] Documentation of: [ ] [ ] Documentation of: [ ] [ ] Documentation of: [ ] [ ] Documentation of: [ ] [ ] Risks [ ] [ ] [ ] Treatment [ ] Right facial mass (possible Epidermal inclusion cyst) Query for size (mm or cm) of excised margins of right facial cyst Mass with margins was 3.5 cms in diameter. [ ] [ ] To be completed by Physician: KADY THOMPSON The documentation in this patients record requires clarification to ensure coding compliance and accuracy. Check the appropriate box and include in your discharge summary. [ ] [ ] [ ] [ ] Please check this box if this does not apply to this patient [ ] Unable to determine [ ] Other diagnosis: Review the following information and exercise your independent professional judgment in responding to the clarification. Based upon the clinical findings, risk factors, and treatment, please clarify if you are treating one of the above probable or suspected diagnoses. Physician Signature: Date Time MTDD
== END 2020-02-02 09:52 | disposition home or self-care (01) ==
LOC: SDC 05:53
PROVIDERS: ATTEND Student in an Organized Health Care Education/Training Program
PROC: 0HB1XZZ Excision of Face Skin, External Approach (ICD-10-PCS; principal; 2020-02-02)
DX: L72.0 Epidermal cyst (principal); F20.9 Schizophrenia, unspecified; F31.9 Bipolar disorder, unspecified; F17.210 Nicotine dependence, cigarettes, uncomplicated; Z79.899 Other long term (current) drug therapy
CPT/HCPCS: 88304; J2001; J2250; J2704; J3010

== ENCOUNTER 2020-08-08 12:30 | Emergency (ER) | payer MEDICARE, MEDICAID ==
[2020-08-09 12:13] LABS: SARS-CoV-2 MS2 Positive; SARS-CoV-2 N Gene Negative; SARS-CoV-2 S Gene Negative; SARS-CoV-2 by NAA Not Detected (NotDetected); SARS-CoV-2 orf1ab Negative
== END 2020-08-08 13:00 | disposition home or self-care (01) ==
LOC: ERS 12:30
DX: Z20.828 Contact with and (suspected) exposure to other viral communicable diseases (principal)
CPT/HCPCS: 99283; U0003; 87635

== ENCOUNTER 2020-08-21 17:10 | Emergency (ER) | payer MEDICARE, MEDICAID ==
[2020-08-22 05:32] LABS: SARS-CoV-2 MS2 Positive; SARS-CoV-2 N Gene Negative; SARS-CoV-2 S Gene Negative; SARS-CoV-2 by NAA Not Detected (NotDetected); SARS-CoV-2 orf1ab Negative
== END 2020-08-21 17:41 | disposition home or self-care (01) ==
LOC: ERS 17:10
DX: Z20.828 Contact with and (suspected) exposure to other viral communicable diseases (principal); I10 Essential (primary) hypertension; E78.00 Pure hypercholesterolemia, unspecified; F41.9 Anxiety disorder, unspecified; F31.9 Bipolar disorder, unspecified; F17.210 Nicotine dependence, cigarettes, uncomplicated
CPT/HCPCS: 99283; U0003; 87635

== ENCOUNTER 2020-12-13 17:30 | Outpatient (CLI) | payer MEDICARE, MEDICAID | END 2020-12-13 17:31 | disposition home or self-care (01) | LOC: SLEEPLAB 17:30 | PROVIDERS: ATTEND Family Medicine | DX: G47.33 Obstructive sleep apnea (adult) (pediatric) (principal); G47.9 Sleep disorder, unspecified; E66.9 Obesity, unspecified; R53.83 Other fatigue; R06.83 Snoring; Z68.41 Body mass index [BMI] 40.0-44.9, adult | CPT/HCPCS: 95806 ==

== ENCOUNTER 2020-12-23 19:00 | Outpatient (CLI) | payer MEDICARE, MEDICAID | END 2020-12-23 19:01 | disposition home or self-care (01) | LOC: SLEEPLAB 19:00 | PROVIDERS: ATTEND Family Medicine | DX: G47.33 Obstructive sleep apnea (adult) (pediatric) (principal); G31.84 Mild cognitive impairment of uncertain or unknown etiology; R53.82 Chronic fatigue, unspecified; I10 Essential (primary) hypertension; F31.9 Bipolar disorder, unspecified; R06.83 Snoring; G47.10 Hypersomnia, unspecified; E66.9 Obesity, unspecified; Z68.41 Body mass index [BMI] 40.0-44.9, adult | CPT/HCPCS: 95810 ==

== ENCOUNTER 2020-12-29 18:57 | Emergency (ER) | payer MEDICARE, MEDICAID | END 2020-12-29 19:37 | disposition home or self-care (01) | LOC: ERS 18:57 | DX: J06.9 Acute upper respiratory infection, unspecified (principal); I10 Essential (primary) hypertension; E78.00 Pure hypercholesterolemia, unspecified; F17.210 Nicotine dependence, cigarettes, uncomplicated | CPT/HCPCS: 71045 ==

== ENCOUNTER 2021-04-01 10:20 | Emergency (ER) | payer MEDICARE, MEDICAID ==
[2021-04-01 11:21] LABS: #Basophils 0.1 thou/uL (0.0-0.2); #Eosinphils 0.2 thou/uL (0.0-0.7); #Lymphocytes 2.6 thou/uL (1.20-3.40); #Monocytes 0.6 thou/uL (0.11-0.59); #Neutrophils 4.2 thou/uL (1.40-6.50); %Basophils 0.9 % (0.0-1.0); %Eosinophils 2.1 % (0.0-10.0); %Lymphocytes 34.1 % (21.0-51.0); %Monocytes 7.3 % (0.0-10.0); %Neutrophils 55.5 % (42.0-75.0); Hemoglobin 14.5 g/dL (14.0-18.0); Mean Corpuscular HGB CONC 35.1 g/dL (32.0-36.0); Mean Corpuscular Hemoglobin 33.5 pg (27.0-31.0); Mean Corpuscular Volume 95.4 fL (78.0-98.0); Mean Platelet Volume 7.4 fL (7.4-10.4); Platelet Count 264 thou/uL (130-400); RBC Distribution Width 11.6 % (11.5-14.5); Red Blood Cell (RBC) Count 4.32 mill/uL (4.70-6.10); White Blood Cell (WBC) Count 7.5 thou/uL (4.8-10.8)
[2021-04-01 11:39] LABS: Acetaminophen Less than 6.0 mcg/mL (10.0-30.0); Alcohol Less than 10 mg/dL (Less than 10); Salicylate Less than 8.0 mg/dL (15.0-30.0)
[2021-04-01 11:46] LABS: ALT (SGPT) 34 U/L (8-55); AST (SGOT) 22 U/L (5-34); Albumin 4.6 g/dL (3.5-5.0); Alkaline Phosphatase 88 U/L (40-110); BUN (Urea Nitrogen) 6 mg/dL (8.9-20.6); Bilirubin, Total 0.5 mg/dL (0.2-1.2); Calc. Creatinine Clearance 0 mL/min (70-130); Calcium 9.4 mg/dL (7.8-10.44); Glucose 233 mg/dL (70-105)
[2021-04-01 12:10] LABS: Chloride 110 mmol/L (98-107); Potassium 4.3 mmol/L (3.5-5.1); Sodium 143 mmol/L (136-145)
[2021-04-01 12:11] LABS: Globulin 2.9 g/dL (2.4-3.5); Protein, Total 7.5 g/dL (6.0-8.3)
[2021-04-01 13:24] LABS: Bilirubin Negative (Negative); Blood, Urine Negative (Negative); Clarity Clear (Clear); Glucose, Urine (Dipstick) 200 mg/dL (Negative); Ketone, Urine Negative (Negative); Leukocyte Negative Leu/uL (Negative); Nitrite Negative (Negative); Protein, Urine (Dipstick) Negative (Neg-Trace); Specific Gravity, Urine 1.012 (1.002-1.036); Urobilinogen Normal mg/dL (Less than 2); pH, Urine 6.5 (5.0-9.0)
[2021-04-01 13:50] LABS: Amphetamine Not Detected (NotDetected); Barbiturates Screen Not Detected (NotDetected); Benzodiazepine Screen Not Detected (NotDetected); Cocaine Metabolite Screen Not Detected (NotDetected); Medtox Control Line Valid? VALID (VALID); Medtox Reader # READER 4; Methadone Not Detected (NotDetected); Methamphetamine Not Detected (NotDetected); Opiate Screen Not Detected (NotDetected); Oxycodone Screen Not Detected (NotDetected); Phencyclidine (PCP) Not Detected (NotDetected); THC/Cannabinoid Screen Not Detected (NotDetected); Tricyclic Screen Not Detected (NotDetected)
[2021-04-01] MEDS ORDERED: Nicotine 14 MG PATCH TOP SCH (17:30)
[2021-04-01 17:42] LABS: Anion Gap 21 mmol/L (10-20); Carbon Dioxide 13 mmol/L (22-29)
[2021-04-01] MEDS ORDERED: Gabapentin 300 MG CAP PO SCH (17:45)
[2021-04-01] MEDS ORDERED: busPIRone HCl 10 MG TAB PO SCH (17:45)
[2021-04-01] MEDS ORDERED: Nicotine 14 MG PATCH ONE (18:26)
[2021-04-01] MEDS ORDERED: Benztropine 1 MG TAB PO SCH (18:30)
[2021-04-01] MEDS ORDERED: Fenofibrate Nanocrystallized 145 MG TAB PO SCH (18:30)
[2021-04-01] MEDS ORDERED: Lithium Carbonate 150 MG CAP PO SCH (18:45)
[2021-04-01] MEDS ORDERED: Prazosin HCl 1 MG CAP PO SCH (18:45)
== END 2021-04-01 21:17 ==
LOC: ERS 10:20
DX: R44.0 Auditory hallucinations (principal); R45.851 Suicidal ideations; I10 Essential (primary) hypertension; E78.00 Pure hypercholesterolemia, unspecified; K31.1 Adult hypertrophic pyloric stenosis; F17.210 Nicotine dependence, cigarettes, uncomplicated; Z79.899 Other long term (current) drug therapy
CPT/HCPCS: 36415; 80053; 80306; 80307; 81003; 84443; 85025; 93005

== ENCOUNTER 2021-08-18 00:55 | Emergency (ER) | payer MEDICARE, MEDICAID | END 2021-08-18 02:29 | disposition home or self-care (01) | LOC: ERS 00:55 | DX: R06.02 Shortness of breath (principal); I10 Essential (primary) hypertension; E78.00 Pure hypercholesterolemia, unspecified; J45.909 Unspecified asthma, uncomplicated; F17.210 Nicotine dependence, cigarettes, uncomplicated; Z79.899 Other long term (current) drug therapy | CPT/HCPCS: 71045; 93005; 94640; J7620 ==

== ENCOUNTER 2022-01-09 06:43 | Day surgery (SDC) | payer MEDICARE, MEDICAID ==
[2022-01-04 13:47] VITALS: BMI 42.0
[2022-01-09] MEDS ORDERED: Fentanyl 100 MCG/2 ML VIAL ONE (06:49)
[2022-01-09] MEDS ORDERED: Dexmedetomidine 200 MCG/2 ML VIAL ONE (06:49)
[2022-01-09] MEDS ORDERED: Lidocaine 1% w/Epinephrine 1:100K 20 ML VIAL ONE (08:09)
[2022-01-09] MEDS ORDERED: Bacitracin Zinc Ointment 30 gm TUBE ONE (08:09)
[2022-01-09] MEDS ORDERED: Rocuronium Bromide 10 MG/ML (10ML VIAL) ONE (08:42)
[2022-01-09] MEDS ORDERED: ePHEDrine 50 MG/ML VIAL ONE (08:42)
[2022-01-09] MEDS ORDERED: Glycopyrrolate 0.2 MG/ML 5 ML SYRINGE ONE (08:42)
[2022-01-09] MEDS ORDERED: PROPOFOL 200 MG/20 ML VIAL ONE (08:42)
[2022-01-09] MEDS ORDERED: PHENYLEPHRINE-NS 100 MCG/ML 10 ML SYRINGE ONE (08:42)
[2022-01-09] MEDS ORDERED: Ondansetron PF 4 MG/2 ML Vial ONE (08:42)
[2022-01-09] MEDS ORDERED: Lidocaine 1% PF 5 ML VIAL ONE ×2 (08:42)
[2022-01-09] MEDS ORDERED: Dexamethasone 20 MG/5 ML VIAL ONE (08:42)
[2022-01-09] MEDS ORDERED: HYDROcodone/Acetaminophen 5/325 mg Tablet ONE (11:22)
== END 2022-01-09 11:50 | disposition home or self-care (01) ==
LOC: SDC 06:43
PROVIDERS: ATTEND Student in an Organized Health Care Education/Training Program
PROC: 0JB40ZZ Excision of Right Neck Subcutaneous Tissue and Fascia, Open Approach (ICD-10-PCS; principal; 2022-01-09)
DX: L72.0 Epidermal cyst (principal); L98.8 Other specified disorders of the skin and subcutaneous tissue; H60.01 Abscess of right external ear; K21.9 Gastro-esophageal reflux disease without esophagitis; I10 Essential (primary) hypertension; E66.01 Morbid (severe) obesity due to excess calories; Z68.41 Body mass index [BMI] 40.0-44.9, adult; Z87.891 Personal history of nicotine dependence; Z79.899 Other long term (current) drug therapy
CPT/HCPCS: 14041; C1776; 88304; J1100; J2405; J2704; J3010; J3490

== ENCOUNTER 2022-03-21 07:47 | Outpatient (CLI) | payer MEDICARE, MEDICAID | END 2022-03-21 07:48 | disposition home or self-care (01) | LOC: BICRAD 07:47 | PROVIDERS: ATTEND Family Medicine | DX: M54.6 Pain in thoracic spine (principal) | CPT/HCPCS: 72072 ==

== ENCOUNTER 2022-05-10 16:59 | Emergency (ER) | payer MEDICARE, OTHER ==
[2022-05-10 17:52] LABS: #Eosinphils 0.2 thou/uL (0.0-0.7); #Lymphocytes 2.2 thou/uL (1.20-3.40); #Monocytes 0.7 thou/uL (0.11-0.59); #Neutrophils 5.7 thou/uL (1.40-6.50); %Basophils 0.5 % (0.0-1.0); %Eosinophils 1.8 % (0.0-10.0); %Lymphocytes 25.3 % (21.0-51.0); %Monocytes 7.4 % (0.0-10.0); Hemoglobin 13.4 g/dL (14.0-18.0); Mean Corpuscular HGB CONC 33.8 g/dL (32.0-36.0); Mean Corpuscular Hemoglobin 31.4 pg (27.0-31.0); Mean Corpuscular Volume 92.9 fL (78.0-98.0); Mean Platelet Volume 7.4 fL (7.4-10.4); Platelet Count 246 thou/uL (130-400); RBC Distribution Width 12.2 % (11.5-14.5); Red Blood Cell (RBC) Count 4.26 mill/uL (4.70-6.10); White Blood Cell (WBC) Count 8.8 thou/uL (4.8-10.8)
[2022-05-10 18:17] LABS: ALT (SGPT) 22 U/L (8-55); AST (SGOT) 18 U/L (5-34); Albumin 4.4 g/dL (3.5-5.0); Alkaline Phosphatase 87 U/L (40-110); Anion Gap 13 mmol/L (10-20); BUN (Urea Nitrogen) 8 mg/dL (8.9-20.6); Bilirubin, Total 0.6 mg/dL (0.2-1.2); Calc. Creatinine Clearance 0 mL/min (70-130); Calcium 9.3 mg/dL (7.8-10.44); Carbon Dioxide 22 mmol/L (22-29); Chloride 110 mmol/L (98-107); Estimated GFR 83; Globulin 2.8 g/dL (2.4-3.5); Glucose 155 mg/dL (70-105); Magnesium 2.1 mg/dL (1.6-2.6); Potassium 3.7 mmol/L (3.5-5.1); Protein, Total 7.2 g/dL (6.0-8.3); Sodium 141 mmol/L (136-145)
[2022-05-10 18:34] LABS: Bilirubin Negative (Negative); Blood, Urine Negative (Negative); Clarity Clear (Clear); Glucose, Urine (Dipstick) Normal (Negative); Ketone, Urine Negative (Negative); Leukocyte Negative Leu/uL (Negative); Nitrite Negative (Negative); Protein, Urine (Dipstick) Negative (Neg-Trace); Specific Gravity, Urine 1.012 (1.002-1.036); Urobilinogen Normal mg/dL (Less than 2)
== END 2022-05-10 19:32 | disposition home or self-care (01) ==
LOC: ERS 16:59
DX: R55 Syncope and collapse (principal); I10 Essential (primary) hypertension; Z87.891 Personal history of nicotine dependence; E78.00 Pure hypercholesterolemia, unspecified
CPT/HCPCS: 80053; 81003; 83735; 85025; 93005; 94760

== ENCOUNTER 2023-02-15 16:47 | Emergency (ER) | payer OTHER ==
[2023-02-15] MEDS ORDERED: HYDROcodone/Acetaminophen 10/325 mg Tablet ONE (17:58)
[2023-02-15] MEDS ORDERED: Lidocaine 1% w/Epinephrine 1:100K 20 ML VIAL ONE (17:59)
== END 2023-02-15 19:21 | disposition home or self-care (01) ==
LOC: ERS 16:47
DX: L02.411 Cutaneous abscess of right axilla (principal); L73.2 Hidradenitis suppurativa; I10 Essential (primary) hypertension; E78.00 Pure hypercholesterolemia, unspecified; Z87.891 Personal history of nicotine dependence; Z79.899 Other long term (current) drug therapy
CPT/HCPCS: 10060

== ENCOUNTER 2023-02-18 12:36 | Emergency (ER) | payer OTHER ==
[2023-02-18] MEDS ORDERED: HYDROcodone/Acetaminophen 5/325 mg Tablet ONE (12:47)
[2023-02-18] MEDS ORDERED: Aspirin Chewable 81 MG TAB ONE (12:47)
== END 2023-02-18 15:34 | disposition left against medical advice (07) ==
LOC: ERS 12:36
DX: Z53.21 Procedure and treatment not carried out due to patient leaving prior to being seen by health care provider (principal)

== ENCOUNTER 2023-06-02 09:54 | Emergency (ER) | payer OTHER | END 2023-06-02 10:56 | disposition left against medical advice (07) | LOC: ERS 09:54 | DX: Z53.21 Procedure and treatment not carried out due to patient leaving prior to being seen by health care provider (principal) ==

== ENCOUNTER 2023-07-16 23:02 | Emergency (ER) | payer OTHER, MEDICAID ==
[2023-07-16] MEDS ORDERED: Prochlorperazine 10 MG/2 ML VIAL ONE (23:56)
[2023-07-16] MEDS ORDERED: diphenhydrAMINE 50 MG/ML VIAL ONE (23:56)
[2023-07-16] MEDS ORDERED: Prochlorperazine 10 MG/2 ML VIAL IVP SCH (23:59)
[2023-07-17 00:58] LABS: ALT (SGPT) 29 U/L (8-55); AST (SGOT) 17 U/L (5-34); Albumin 5.1 g/dL (3.5-5.0); Alkaline Phosphatase 84 U/L (40-110); Anion Gap 13 mmol/L (10-20); BUN (Urea Nitrogen) 13 mg/dL (8.9-20.6); Bilirubin, Total 1.2 mg/dL (0.2-1.2); Calc. Creatinine Clearance 0 mL/min (70-130); Calcium 9.9 mg/dL (7.8-10.44); Carbon Dioxide 24 mmol/L (22-29); Chloride 107 mmol/L (98-107); Estimated GFR 93; Globulin 2.6 g/dL (2.4-3.5); Glucose 131 mg/dL (70-105); Lipase 17 U/L (8-78); Potassium 3.6 mmol/L (3.5-5.1); Protein, Total 7.7 g/dL (6.0-8.3); Sodium 140 mmol/L (136-145)
[2023-07-17] MEDS ORDERED: Acetaminophen 500 MG TAB ONE (01:12)
[2023-07-17 01:14] LABS: #Eosinphils 0.1 thou/uL (0.0-0.7); #Monocytes 0.5 thou/uL (0.11-0.59); #Neutrophils 6.4 thou/uL (1.40-6.50); %Basophils 0.4 % (0.0-1.0); %Eosinophils 1.2 % (0.0-10.0); %Lymphocytes 8.8 % (21.0-51.0); %Monocytes 6.3 % (0.0-10.0); Hematocrit 42.9 % (42.0-52.0); Hemoglobin 14.8 g/dL (14.0-18.0); Mean Corpuscular HGB CONC 34.5 g/dL (32.0-36.0); Mean Corpuscular Hemoglobin 30.8 pg (27.0-31.0); Mean Corpuscular Volume 89.2 fl (78.0-98.0); Mean Platelet Volume 9.6 fL (7.4-10.4); Platelet Count 224 10x3/uL (130-400); RBC Distribution Width 12.6 % (11.5-14.5); Red Blood Cell (RBC) Count 4.81 mill/uL (4.70-6.10); White Blood Cell (WBC) Count 7.7 10x3/uL (4.8-10.8)
[2023-07-17] MEDS ORDERED: Ondansetron ODT 4 MG TAB ONE (01:33)
[2023-07-17] MEDS ORDERED: Ondansetron PF 4 MG/2 ML Vial ONE (02:50)
== END 2023-07-17 03:59 | disposition home or self-care (01) ==
LOC: ERS 23:02
DX: R11.2 Nausea with vomiting, unspecified (principal); R51.9 Headache, unspecified; I10 Essential (primary) hypertension; E11.9 Type 2 diabetes mellitus without complications
CPT/HCPCS: 36415; 80053; 80178; 83690; 85025; 96361; 96374; 96375; J0780; J1200; J2405; Q0162

== ENCOUNTER 2023-09-17 11:15 | Outpatient (CLI) | payer OTHER, MEDICAID | END 2023-09-17 11:16 | disposition home or self-care (01) | LOC: DTY/OP 11:15 | PROVIDERS: ATTEND Student in an Organized Health Care Education/Training Program | DX: E11.65 Type 2 diabetes mellitus with hyperglycemia (principal) | CPT/HCPCS: 97802 ==

== ENCOUNTER 2023-10-23 17:35 | Emergency (ER) | payer OTHER, MEDICAID ==
[2023-10-23 17:54] LABS: #Basophils 0.1 thou/uL (0.0-0.2); #Eosinphils 0.1 thou/uL (0.0-0.7); #Monocytes 0.6 thou/uL (0.11-0.59); #Neutrophils 4.4 thou/uL (1.40-6.50); %Basophils 0.6 % (0.0-1.0); %Eosinophils 1.3 % (0.0-10.0); %Lymphocytes 34.6 % (21.0-51.0); %Neutrophils 56.1 % (42.0-75.0); Hematocrit 43.4 % (42.0-52.0); Mean Corpuscular HGB CONC 34.6 g/dL (32.0-36.0); Mean Corpuscular Volume 89.7 fl (78.0-98.0); Mean Platelet Volume 9.6 fL (7.4-10.4); Platelet Count 208 10x3/uL (130-400); RBC Distribution Width 12.4 % (11.5-14.5); Red Blood Cell (RBC) Count 4.84 mill/uL (4.70-6.10); White Blood Cell (WBC) Count 7.9 10x3/uL (4.8-10.8)
[2023-10-23 18:16] LABS: ALT (SGPT) 26 U/L (8-55); AST (SGOT) 15 U/L (5-34); Albumin 4.9 g/dL (3.5-5.0); Alkaline Phosphatase 110 U/L (40-110); Anion Gap 13 mmol/L (10-20); BUN (Urea Nitrogen) 10 mg/dL (8.9-20.6); Bilirubin, Total 0.6 mg/dL (0.2-1.2); Calc. Creatinine Clearance 0 mL/min (70-130); Calcium 9.9 mg/dL (7.8-10.44); Carbon Dioxide 26 mmol/L (22-29); Chloride 105 mmol/L (98-107); Estimated GFR 85; Globulin 2.5 g/dL (2.4-3.5); Glucose 134 mg/dL (70-105); Lipase 16 U/L (8-78); Potassium 3.7 mmol/L (3.5-5.1); Protein, Total 7.4 g/dL (6.0-8.3); Sodium 140 mmol/L (136-145)
[2023-10-23 18:19] LABS: Troponin I Less than 0.010 ng/mL (< 0.028)
[2023-10-23] MEDS ORDERED: LORazepam 2 MG/ML SYR.(CARPUJECT) ONE (18:47)
== END 2023-10-23 19:10 | disposition home or self-care (01) ==
LOC: ERS 17:35
DX: F41.0 Panic disorder [episodic paroxysmal anxiety] (principal); E11.9 Type 2 diabetes mellitus without complications; I10 Essential (primary) hypertension; Z79.899 Other long term (current) drug therapy
CPT/HCPCS: 71045; 80053; 83690; 84484; 85025; 93005; J2060; 96374

== ENCOUNTER 2023-11-26 10:02 | Outpatient (CLI) | payer OTHER, MEDICAID | END 2023-11-26 10:03 | disposition home or self-care (01) | LOC: BICRAD 10:02 | PROVIDERS: ATTEND Student in an Organized Health Care Education/Training Program | DX: M54.16 Radiculopathy, lumbar region (principal) | CPT/HCPCS: 72100 ==

== ENCOUNTER 2024-03-31 17:26 | Emergency (ER) | payer OTHER, MEDICAID | END 2024-03-31 20:26 | disposition left against medical advice (07) | LOC: ERS 17:26 | DX: Z53.21 Procedure and treatment not carried out due to patient leaving prior to being seen by health care provider (principal) ==

== ENCOUNTER 2024-07-23 04:43 | Emergency (ER) | payer OTHER, MEDICAID ==
[2024-07-23 05:13] LABS: #Basophils 0.06 10x3/uL (0.0-0.2); %Basophils 0.5 % (0.0-1.0); %Eosinophils 0.7 % (0.0-10.0); %Lymphocytes 17.5 % (21.0-51.0); %Monocytes 7.3 % (0.0-10.0); %Neutrophils 73.6 % (42.0-75.0); Hematocrit 46.2 % (42.0-52.0); Hemoglobin 15.8 g/dL (14.0-18.0); Mean Corpuscular HGB CONC 34.2 g/dL (32.0-36.0); Mean Corpuscular Hemoglobin 31.2 pg (27.0-31.0); Mean Corpuscular Volume 91.3 fL (78.0-98.0); Mean Platelet Volume 9.3 fL (7.4-10.4); Platelet Count 296 10x3/uL (130-400); RBC Distribution Width 12.5 % (11.5-14.5); Red Blood Cell (RBC) Count 5.06 mill/uL (4.70-6.10)
[2024-07-23 05:29] LABS: ALT (SGPT) 16 U/L (8-55); AST (SGOT) 13 U/L (5-34); Albumin 4.7 g/dL (3.5-5.0); Alkaline Phosphatase 90 U/L (40-110); Anion Gap 10 mmol/L (10-20); BUN (Urea Nitrogen) 14 mg/dL (8.9-20.6); Bilirubin, Total 1.3 mg/dL (0.2-1.2); Calc. Creatinine Clearance 0 mL/min (70-130); Calcium 9.7 mg/dL (7.8-10.44); Carbon Dioxide 24 mmol/L (22-29); Chloride 107 mmol/L (98-107); Estimated GFR 73; Glucose 102 mg/dL (70-105); Lipase 15 U/L (8-78); Potassium 3.6 mmol/L (3.5-5.1); Protein, Total 7.7 g/dL (6.0-8.3); Sodium 137 mmol/L (136-145)
[2024-07-23] MEDS ORDERED: Dicyclomine 20 MG TAB ONE (05:45)
== END 2024-07-23 06:13 | disposition home or self-care (01) ==
LOC: ERS 04:43
DX: K57.92 Diverticulitis of intestine, part unspecified, without perforation or abscess without bleeding (principal); I10 Essential (primary) hypertension; E11.9 Type 2 diabetes mellitus without complications; Z87.891 Personal history of nicotine dependence; Z55.6 Problems related to health literacy
CPT/HCPCS: 74177; 80053; 83690; 85025

== ENCOUNTER 2024-08-31 08:30 | Inpatient (IN) | payer OTHER, MEDICAID ==
[2024-08-31 08:42] VITALS: BMI 35.2
[2024-09-08] MEDS ORDERED: fentaNYL PF 100 MCG/2 ML SYRINGE ONE ×2 (07:06→07:17)
[2024-09-08] MEDS ORDERED: PROPOFOL 40 ML ONE (07:06)
[2024-09-08] MEDS ORDERED: Rocuronium Bromide 10 MG/ML (10ML VIAL) ONE (07:07)
[2024-09-08] MEDS ORDERED: Lidocaine 1% PF 5 ML VIAL ONE (07:07)
[2024-09-08] MEDS ORDERED: Midazolam HCl 2 mg/2 ml Vial ONE ×2 (07:17→07:29)
[2024-09-08] MEDS ORDERED: Dexmedetomidine 200 MCG/2 ML VIAL ONE ×2 (07:17→09:56)
[2024-09-08] MEDS ORDERED: Bupivacaine 0.25% HCL 30 ML VIAL ONE (07:18)
[2024-09-08] MEDS ORDERED: fentaNYL 50 mcg/mL 1 mL Vial ONE (07:30)
[2024-09-08] MEDS ORDERED: cefOXitin 2 GM VIAL ONE (07:50)
[2024-09-08] MEDS ORDERED: ePHEDrine Sulfate 50 MG/10 ML VIAL ONE (08:22)
[2024-09-08] MEDS ORDERED: Glycopyrrolate 0.2 MG/ML 5 ML SYRINGE ONE (08:29)
[2024-09-08] MEDS ORDERED: Albumin 5% 250 ML ONE (08:30)
[2024-09-08] MEDS ORDERED: Ondansetron PF 4 MG/2 ML Vial ONE (10:18)
[2024-09-08] MEDS ORDERED: SUGAMMADEX SODIUM 200 MG/2 ML VIAL ONE (10:22)
[2024-09-08] MEDS ORDERED: Ondansetron HCl/PF 4 MG/2 ML Vial IVP PRN (10:24)
[2024-09-08] MEDS ORDERED: HYDROmorphone 2 MG/ML VIAL SLOW IVP PRN (10:24)
[2024-09-08] MEDS ORDERED: Promethazine HCl 25 MG/ML VIAL IM PRN ×2 (10:24→10:49)
[2024-09-08] MEDS ORDERED: Naloxone HCl 0.4 mg/ml Vial IVP PRN (10:49)
[2024-09-08] MEDS ORDERED: hydrALAZINE 20 MG/ML VIAL SLOW IVP PRN (10:49)
[2024-09-08] MEDS ORDERED: Ipratropium/Albuterol 3 ML NEB NEB PRN (10:49)
[2024-09-08] MEDS ORDERED: HYDROmorphone 2 MG/ML VIAL ONE (10:54)
[2024-09-08] MEDS ORDERED: D5 1/2 NS w/20 mEq KCL 1,000 ML ONE (11:36)
[2024-09-08] MEDS: fentaNYL 50 mcg/mL 1 mL Vial SLOW IVP PRN (13:06)
[2024-09-08] MEDS: D5 1/2 NS w/20 mEq KCL 1,000 ML IV SCH (13:15)
[2024-09-08] MEDS: Acetaminophen 500 MG TAB PO SCH (13:17)
[2024-09-08] MEDS: traMADol HCl 50 MG TAB PO SCH (13:17)
[2024-09-08] MEDS: oxyCODONE 5 MG TAB PO PRN (14:47)
[2024-09-08] MEDS: Gabapentin 400 MG CAP PO PRN (14:47)
[2024-09-08] MEDS: Ondansetron PF 4 MG/2 ML Vial IVP PRN (16:19)
[2024-09-08] MEDS: cefOXitin 2 GM in Sodium Chloride 0.9% 100 ML IVPB SCH (16:19)
[2024-09-08] MEDS: LITHIUM CARBONATE 450 MG PO SCH (21:45)
[2024-09-09 06:37] LABS: #Basophils 0.03 10x3/uL (0.0-0.2); #Eosinophils Less than 0.03 10x3/uL (0.0-0.7); %Basophils 0.2 % (0.0-1.0); %Monocytes 9.8 % (0.0-10.0); %Neutrophils 78.5 % (42.0-75.0); Hematocrit 39.7 % (42.0-52.0); Hemoglobin 13.6 g/dL (14.0-18.0); Mean Corpuscular HGB CONC 34.3 g/dL (32.0-36.0); Mean Corpuscular Volume 90.4 fL (78.0-98.0); Mean Platelet Volume 9.6 fL (7.4-10.4); Platelet Count 344 10x3/uL (130-400); RBC Distribution Width 12.3 % (11.5-14.5); Red Blood Cell (RBC) Count 4.39 mill/uL (4.70-6.10)
[2024-09-09 06:40] LABS: Anion Gap 15 mmol/L (10-20); BUN (Urea Nitrogen) 12 mg/dL (8.9-20.6); Calc. Creatinine Clearance 152 mL/min (70-130); Calcium 9.4 mg/dL (7.8-10.44); Carbon Dioxide 18 mmol/L (22-29); Chloride 110 mmol/L (98-107); Estimated GFR 88; Glucose 129 mg/dL (70-105); Potassium 3.6 mmol/L (3.5-5.1); Sodium 139 mmol/L (136-145)
[2024-09-09] MEDS: Enoxaparin 40 MG (0.4 mL) SYRINGE SC SCH (09:04)
[2024-09-09] MEDS: Losartan 25 MG TAB PO SCH (09:05)
[2024-09-09] MEDS: Amlodipine 5 MG TAB PO SCH (09:05)
[2024-09-09] MEDS: Pantoprazole DR 40 MG TAB PO SCH (09:05)
[2024-09-09] MEDS: FLU (Fluarix Triv) TS24-25(6MOS UP)/PF 45 MCG/0.5 ML Syringe IM ONE (09:07)
[2024-09-09 10:46] VITALS: BMI 35.2
[2024-09-09] MEDS: D5 1/2 NS w/20 mEq KCL 1,000 ML IV SCH (15:07)
[2024-09-09] MEDS: Zolpidem Tartrate 5 MG TAB PO PRN (20:00)
[2024-09-09] MEDS: Acetaminophen 325 MG TAB PO PRN (23:08)
[2024-09-10 05:09] LABS: #Basophils 0.06 10x3/uL (0.0-0.2); %Basophils 0.5 % (0.0-1.0); %Eosinophils 0.7 % (0.0-10.0); %Lymphocytes 23.4 % (21.0-51.0); %Monocytes 11.7 % (0.0-10.0); %Neutrophils 63.3 % (42.0-75.0); Hemoglobin 12.5 g/dL (14.0-18.0); Mean Corpuscular HGB CONC 33.8 g/dL (32.0-36.0); Mean Corpuscular Hemoglobin 31.2 pg (27.0-31.0); Mean Corpuscular Volume 92.3 fL (78.0-98.0); Mean Platelet Volume 9.3 fL (7.4-10.4); Platelet Count 248 10x3/uL (130-400); RBC Distribution Width 12.4 % (11.5-14.5); Red Blood Cell (RBC) Count 4.01 mill/uL (4.70-6.10)
[2024-09-10 05:34] LABS: Anion Gap 10 mmol/L (10-20); BUN (Urea Nitrogen) 10 mg/dL (8.9-20.6); Calc. Creatinine Clearance 158 mL/min (70-130); Carbon Dioxide 24 mmol/L (22-29); Chloride 108 mmol/L (98-107); Estimated GFR 92; Glucose 97 mg/dL (70-105); Sodium 138 mmol/L (136-145)
[2024-09-10 09:11] VITALS: BP 147/92; TEMP 98.5
== END 2024-09-10 10:39 | disposition home or self-care (01) | DRG 331 ==
LOC: SURG A 09-08 06:16 → SURG B 09-08 12:59
PROVIDERS: ADMIT Surgery; ATTEND Surgery
PROC: 0DBN4ZZ Excision of Sigmoid Colon, Percutaneous Endoscopic Approach (ICD-10-PCS; principal; 2024-09-08)
PROC: 0DBP4ZZ Excision of Rectum, Percutaneous Endoscopic Approach (ICD-10-PCS; 2024-09-08)
PROC: 8E0W4CZ Robotic Assisted Procedure of Trunk Region, Percutaneous Endoscopic Approach (ICD-10-PCS; 2024-09-08)
DX: K57.32 Diverticulitis of large intestine without perforation or abscess without bleeding (principal); I10 Essential (primary) hypertension; E78.5 Hyperlipidemia, unspecified; F31.9 Bipolar disorder, unspecified; E66.01 Morbid (severe) obesity due to excess calories; E11.9 Type 2 diabetes mellitus without complications; G89.29 Other chronic pain; M25.569 Pain in unspecified knee; G47.33 Obstructive sleep apnea (adult) (pediatric); F20.9 Schizophrenia, unspecified; Z68.35 Body mass index [BMI] 35.0-35.9, adult; Z87.891 Personal history of nicotine dependence
CPT/HCPCS: 36415; 36416; 80048; 85025; 88307; A4649; J0665; J0694; J1650; J2250; J2405; J2704; J3010; J3480; P9045; S2900

== ENCOUNTER 2024-08-31 08:32 | Outpatient (CLI) | payer OTHER, MEDICAID ==
[2024-08-31 10:47] LABS: #Basophils 0.06 10x3/uL (0.0-0.2); %Basophils 0.6 % (0.0-1.0); %Eosinophils 1.4 % (0.0-10.0); %Lymphocytes 21.5 % (21.0-51.0); %Monocytes 7.1 % (0.0-10.0); %Neutrophils 68.9 % (42.0-75.0); Mean Corpuscular HGB CONC 34.1 g/dL (32.0-36.0); Mean Corpuscular Hemoglobin 30.9 pg (27.0-31.0); Mean Corpuscular Volume 90.5 fL (78.0-98.0); Platelet Count 283 10x3/uL (130-400); Red Blood Cell (RBC) Count 4.86 mill/uL (4.70-6.10)
[2024-08-31 11:09] LABS: Anion Gap 15 mmol/L (10-20); BUN (Urea Nitrogen) 8 mg/dL (8.9-20.6); Calc. Creatinine Clearance 0 mL/min (70-130); Calcium 9.2 mg/dL (7.8-10.44); Carbon Dioxide 21 mmol/L (22-29); Chloride 104 mmol/L (98-107); Estimated GFR 102; Glucose 135 mg/dL (70-105); Potassium 3.2 mmol/L (3.5-5.1); Sodium 137 mmol/L (136-145)
== END 2024-08-31 08:33 | disposition home or self-care (01) ==
LOC: LABBT 08:32
PROVIDERS: ATTEND Surgery
DX: Z01.818 Encounter for other preprocedural examination (principal); K57.32 Diverticulitis of large intestine without perforation or abscess without bleeding
CPT/HCPCS: 80048; 85025; 93005; 93010

== ENCOUNTER 2025-07-25 02:38 | Observation (INO) | payer OTHER, MEDICAID ==
[2025-07-25 03:11] LABS: #Basophils 0.06 10x3/uL (0.0-0.2); #Eosinophils 0.04 10x3/uL (0.0-0.7); #Monocytes 0.97 10x3/uL (0.11-0.59); #Neutrophils 6.38 10x3/uL (1.40-6.50); %Basophils 0.6 % (0.0-1.0); %Eosinophils 0.4 % (0.0-10.0); %Lymphocytes 29.5 % (21.0-51.0); %Monocytes 9.1 % (0.0-10.0); %Neutrophils 59.9 % (42.0-75.0); Hematocrit 41.7 % (42.0-52.0); Hemoglobin 14.2 g/dL (14.0-18.0); Mean Corpuscular Hemoglobin 31.0 pg (27.0-31.0); Mean Corpuscular Volume 91.0 fL (78.0-98.0); Platelet Count 313 10x3/uL (130-400); Red Blood Cell (RBC) Count 4.58 mill/uL (4.70-6.10); White Blood Cell (WBC) Count 10.64 10x3/uL (4.8-10.8)
[2025-07-25 03:25] LABS: Lithium 0.445 mmol/L (1.0-1.2)
[2025-07-25 03:32] LABS: Magnesium 2.2 mg/dL (1.6-2.6)
[2025-07-25 03:33] LABS: Acetaminophen Less than 10 mcg/mL (Less than 10); Salicylate Less than 8.0 mg/dL (Less than 8.0)
[2025-07-25 03:34] LABS: ALT (SGPT) 13 U/L (Less than 45); AST (SGOT) 51 U/L (11-34); Albumin 4.9 g/dL (3.1-4.5); Alkaline Phosphatase 86 U/L (40-110); Anion Gap 17 mmol/L (10-20); BUN (Urea Nitrogen) 15 mg/dL (8.9-20.6); Bilirubin, Total 1.0 mg/dL (0.3-1.2); CK (CPK) 785 U/L (30-200); Calc. Creatinine Clearance 0 mL/min (70-130); Calcium 9.8 mg/dL (7.8-10.44); Carbon Dioxide 21 mmol/L (22-29); Chloride 109 mmol/L (98-107); Globulin 2.8 g/dL (2.4-3.5); Glucose 121 mg/dL (70-105); Potassium 2.9 mmol/L (3.5-5.1); Sodium 144 mmol/L (136-145)
[2025-07-25] MEDS ORDERED: Ondansetron PF 4 MG/2 ML Vial IVP PRN (06:37)
[2025-07-25] MEDS ORDERED: Acetaminophen 325 MG TAB PO PRN (06:37)
[2025-07-25] MEDS ORDERED: Calcium Carbonate 500 MG ChewTAB PO PRN (06:37)
[2025-07-25] MEDS ORDERED: Electrolyte Replacement Protocol 1 EACH FS SCH (06:45)
[2025-07-25] MEDS ORDERED: Potassium Bicarbonate/Cit Ac 20 MEQ TAB ONE (06:56)
[2025-07-25 07:37] LABS: Bacteria/HPF None Seen HPF (None Seen); CAUTI Indications for Culture Alt mental st,lethar; Glucose, Urine (Dipstick) Normal (Negative); Leukocyte Negative Leu/uL (Negative); Protein, Urine (Dipstick) 30 mg/dL (Neg-Trace); RBC/HPF 0-3 HPF (0-3); Specific Gravity, Urine 1.022 (1.002-1.036); WBC/HPF 0-3 HPF (0-3)
[2025-07-25 07:41] LABS: Cocaine Metabolite Screen Negative (Negative); THC/Cannabinoid Screen PRELIM POSITIVE (Negative); Tricyclic Screen Negative (Negative)
[2025-07-25 07:50] LABS: Urine Culture Reflex No No
[2025-07-25] MEDS ORDERED: Senokot S 8.6-50 MG TAB PO PRN (10:04)
[2025-07-25] MEDS ORDERED: Glucagon 1 MG/ML KIT IM PRN (10:04)
[2025-07-25] MEDS ORDERED: Dextrose 50% Abboject 50 ML SYRINGE SLOW IVP PRN (10:04)
[2025-07-25] MEDS: LITHIUM CARBONATE 450 MG PO SCH ×2 (12:06→21:53)
[2025-07-26 04:18] LABS: #Basophils 0.04 10x3/uL (0.0-0.2); #Eosinophils 0.04 10x3/uL (0.0-0.7); #Monocytes 0.66 10x3/uL (0.11-0.59); #Neutrophils 4.38 10x3/uL (1.40-6.50); %Basophils 0.5 % (0.0-1.0); %Eosinophils 0.5 % (0.0-10.0); %Lymphocytes 29.6 % (21.0-51.0); %Monocytes 9.0 % (0.0-10.0); %Neutrophils 60.0 % (42.0-75.0); Hematocrit 37.2 % (42.0-52.0); Hemoglobin 12.9 g/dL (14.0-18.0); Mean Corpuscular Hemoglobin 31.5 pg (27.0-31.0); Mean Corpuscular Volume 90.7 fL (78.0-98.0); Platelet Count 237 10x3/uL (130-400); Red Blood Cell (RBC) Count 4.10 mill/uL (4.70-6.10); White Blood Cell (WBC) Count 7.32 10x3/uL (4.8-10.8)
[2025-07-26 04:40] LABS: ALT (SGPT) 16 U/L (Less than 45); AST (SGOT) 24 U/L (11-34); Albumin 4.3 g/dL (3.1-4.5); Alkaline Phosphatase 70 U/L (40-110); Anion Gap 11 mmol/L (10-20); BUN (Urea Nitrogen) 11 mg/dL (8.9-20.6); Bilirubin, Total 1.1 mg/dL (0.3-1.2); CK (CPK) 393 U/L (30-200); Calc. Creatinine Clearance 0 mL/min (70-130); Calcium 9.3 mg/dL (7.8-10.44); Carbon Dioxide 22 mmol/L (22-29); Chloride 113 mmol/L (98-107); Globulin 2.3 g/dL (2.4-3.5); Glucose 92 mg/dL (70-105); Potassium 3.4 mmol/L (3.5-5.1); Sodium 143 mmol/L (136-145)
[2025-07-26] MEDS: Potassium Bicarbonate/Cit Ac 20 MEQ TAB PO SCH (09:37)
[2025-07-26] MEDS: Sertraline 100 MG TAB PO SCH (09:42)
[2025-07-26] MEDS: Pantoprazole 40 MG DR.TAB PO SCH (09:42)
[2025-07-26] MEDS ORDERED: Gabapentin 400 MG CAP PO PRN (09:54)
[2025-07-26 16:47] VITALS: BP 158/98; TEMP 98.5
[2025-07-26] MEDS: Melatonin 3 MG TAB PO SCH (20:42)
[2025-07-27] MEDS ORDERED: Simvastatin 10 MG TAB PO SCH (09:00)
[2025-07-27] MEDS ORDERED: Losartan 25 MG TAB PO SCH (09:00)
== END 2025-07-26 23:33 | disposition short-term general hospital (02) ==
LOC: ERS 02:38 → ERHOLD 06:51 → 2SE 16:41
PROVIDERS: ADMIT Student in an Organized Health Care Education/Training Program; ATTEND Student in an Organized Health Care Education/Training Program
DX: F23 Brief psychotic disorder (principal); R41.82 Altered mental status, unspecified; I10 Essential (primary) hypertension; E78.5 Hyperlipidemia, unspecified; K21.9 Gastro-esophageal reflux disease without esophagitis; E11.9 Type 2 diabetes mellitus without complications; E87.6 Hypokalemia
CPT/HCPCS: 70450; 71045; 80053; 80178; 80306; 80307 ×2; 81001; 82550 ×2; 82962 ×2; 83605; 83735; 83880; 84100; 84484 ×2; 85025; 87040; 93005; J1630; J2060 ×2; J3480 ×2; J7120 ×2; 36415; 36416; 84443; 96361; 96374; G0378